=== PATIENT | female | born 1960 | race Caucasian/White ===

== ENCOUNTER 2017-06-15 14:57 | Emergency (ER) | payer SELFPAY ==
[~2017-06-15] VITALS: Ht 160 cm; Wt 80.0 kg
[2017-06-15 14:59] VITALS: BP 159/93
[2017-06-15] MEDS ORDERED: RABIES VAC,PF CHICK-EMB CELL 2.5 UNITS/ML IM ONE (16:30)
== END 2017-06-15 17:11 | disposition home or self-care (01) ==
LOC: ER 15:08
DX: S41.111A Laceration without foreign body of right upper arm, initial encounter (principal); I10 Essential (primary) hypertension; W54.0XXA Bitten by dog, initial encounter; Y93.89 Activity, other specified; Y92.89 Other specified places as the place of occurrence of the external cause; Y99.8 Other external cause status
CPT/HCPCS: 99283; X7700; 90675